=== PATIENT | female | born 1935 | race Caucasian/White ===

== ENCOUNTER 2016-10-11 12:41 | Inpatient (IN) | payer MEDICARE, OTHER ==
[2016-10-11] VITALS (13 sets, daily range): BP systolic 106–139; BP diastolic 61–81; PULSE 57–77; RESP 16–23; O2SAT 85
[~2016-10-11] VITALS: Ht 147.3 cm; Wt 47.4 kg
[2016-10-11] MEDS ORDERED: Alum-Mag Hydrox-Simeth 30 mL Suspension PO PRN (15:20)
[2016-10-11] MEDS ORDERED: Polyethylene Glycol (PEG) 17 Gm Powder PO PRN (15:20)
[2016-10-11] MEDS ORDERED: Atropine 1 mg/10 mL (Code) Syringe IVPUSH PRN ×2 (15:20→20:10)
[2016-10-11] MEDS ORDERED: Ondansetron 2 mg/mL 2 mL Inj IVPUSH PRN ×2 (15:20→20:10)
[2016-10-11] MEDS ORDERED: Senna-Docusate 8.6-50 mg Tablet PO PRN (15:20)
[2016-10-11 15:27] LABS: Mean Corpuscular Hemoglobin 31.1 pg (27.0-35.0); Mean Corpuscular Volume 93.9 fL (81-100)
[2016-10-11] MEDS ORDERED: Alum-Mag Hydrox-Simeth 30 mL Suspension PO ONE (15:35)
[2016-10-11] MEDS ORDERED: Heparin 5,000 Unit/mL Inj IVPUSH PRN (15:35)
[2016-10-11 15:55] LABS: TROPONIN T 2.28 ug/L (0.0-0.011)
[2016-10-11] MEDS ORDERED: ESTROGEN PO (15:56)
[2016-10-11] MEDS ORDERED: Dextrose 5% 250 ML IV ONE (15:58)
[2016-10-11] MEDS ORDERED: Nitroglycerin 50,000 mcg/250 mL D5W Premix IV ONE ×2 (15:58→19:55)
[2016-10-11] MEDS ORDERED: Heparin 1,000 Units/500 mL NS Premix IV ONE (15:58)
[2016-10-11] MEDS ORDERED: Heparin 10,000 Unit/1,000 mL NS Premix IV ONE ×2 (15:58→16:16)
[2016-10-11] MEDS ORDERED: Heparin 1,000 Unit/mL 10 mL Inj ONE ×2 (15:58→16:16)
[2016-10-11] MEDS ORDERED: NitroPRUSSIDE 25,000 mCg/mL 2 mL Inj IV ONE (15:58)
[2016-10-11] MEDS ORDERED: ASCO-294 PO (15:59)
[2016-10-11] MEDS ORDERED: BIOT1CAP3 PO (15:59)
[2016-10-11] MEDS ORDERED: CYAN1TAB42 PO (15:59)
[2016-10-11] MEDS ORDERED: BETA CAROTENE PO (15:59)
[2016-10-11] MEDS ORDERED: VITA400C64 PO (15:59)
[2016-10-11] MEDS ORDERED: CALC-777 PO (15:59)
[2016-10-11 16:29] LABS: Magnesium 1.8 mg/dL (1.6-2.6)
[2016-10-11] MEDS: Sodium Chloride LOK Flush 10 mL Syringe IVFLUSH SCH (16:30)
[2016-10-11] MEDS ORDERED: Ondansetron 2 mg/mL 2 mL Inj ONE (16:51)
[2016-10-11] MEDS ORDERED: fentaNYL-PF 50 mCg/mL 2 mL Inj ONE (17:01)
--- NOTE | 2016-10-11 17:49 | PCM.HPMED ---
Subjective Date of Service Oct 11, 2016 Primary Provider: Admitting Physician: Zora Munguia DO Primary Care Physician: Erickson Attending Physician: Zora Munguia DO Chief Complaint: Chest pain History of Present Illness: 81-year-old female with long-standing smoking history, as well as peptic ulcer disease who was transferred to our facility [place] after experiencing chest pain that radiated to her back that began at 8 PM last night. Patient states that she had a recent episode of this on September 20 that lasted 3-4 hours, but could still be felt for many days after. She states that she thought this chest pain was due to her agitation due to the fireworks agitating her dog. Patient does not remember any preceding events prior to the pain beginning last night, but states that she thought this was indigestion. Only other review of systems is positive for bloating and epigastric pain. She took many glasses of baking soda mixed with water, Tums and Maalox to help with the pain as it did on September 20, but today she was still feeling the chest tightness and pain. She denies significant shortness of breath, lightheadedness, dizziness, diaphoresis , radiation to the jaw or left arm, change in bowel or bladder habits. At [place] the patient was loaded with 300 mg of Plavix. Patient absolutely refuses to take aspirin, even a baby aspirin, due to her history of peptic ulcer disease. Discussion was had about the benefits of aspirin and Plavix combination but again, she adamantly refused the recommendation. On admit to our hospital the patient underwent EKG which showed elevations in V1 through V6, lead 1 and aVL. STEMI was called and Dr. De La Cruz (cardiology) as patient will need to go immediately to the manufacturing lab technician. Dr. De La Cruz immediately showed up and interviewed the patient in order to take her to the Nurse Discharge however the patient was very reluctant and much time was spent explaining the gravity and necessity of the Nurse Discharge. The patient's daughter was also called and the situation was explained to her as well. After extensive discussion between the patient, her daughter, myself and Dr. De La Cruz the patient decided to agree to the cath procedure however was reluctant to take medications afterwards. After assuring her that we will also treat her peptic ulcer disease with medication in addition to the heart medications that she would have to be taking she finally agreed and was willing to go to the Nurse Discharge. The patient's daughter also agreed with this plan. Review of Systems: Complete review of systems performed; pertinent positives and negatives per history of present illness, all other systems reviewed and are negative Allergies Coded Allergies: Penicillins (Unverified Allergy, Severe, Generalized Welts, 10/11/16) ciprofloxacin (Unverified Allergy, Severe, Face swelled up, 10/11/16) Uncoded Allergies: "all antibiotics except a z pack" (Allergy, Unknown, 10/11/16) patient states "i refuse all antibitics except z pack" Home Medications Vitamin C Biotin Calcium/D3 supplement B12 supplement Vitamin E PMH GERD with PUD No other reported medical problems Surgical History Hysterectomy Family History Mother of pneumonia/abdominal abscess Father committed suicide Social History Hx Alcohol Use: Yes Hx Substance Use: Yes Hx Tobacco Use: Yes (30-45 pack years) Exam Vital Signs Vital Sign - Last Date Time Temp Pulse Resp B/P Pulse Ox O2 Delivery O2 Flow Rate FiO2 10/11/16 14:50 Supplement Oxygen 10/11/16 14:43 61 Exam General: Age-appropriate female in moderate distress HEENT: PERRLA, EOMI, nonicteric, membranes moist Lymph: No lymphadenopathy Cardio: Regular rate and rhythm Respiratory: CTA bilaterally no wheezes or crackles noted Abdomen: Soft, positive bowel sounds, mildly tender epigastrium Extremities: No edema, sensation intact Psych: Appropriate mood and affect Neuro: CN II through XII grossly intact, sensation intact throughout Skin: No rash Lab and Diagnostics Result Diagram: 10/11/16 1500 10/11/16 1500 12-lead ECG Twelve-lead showed ST elevations in V1 through the D6, lead 1, and aVL. Reciprocal leads into 3 and aVF showed T-wave depression. Rate of 58 Assessment & Plan 81-year-old female with a history of prolonged nicotine abuse and peptic ulcer disease presented with chest pain with radiation to the back, with EKG changes significant for STEMI STEMI; present on admission; ongoing -EKG showed elevations in lead 1, aVL, V1 through V6 -Dr. De La Cruz interviewed the patient and took her for cath (extensive discussion was held with both Dr. De La Cruz and myself prior to taking the patient) -Patient was given metoprolol due to continued chest pain, morphine, nitroglycerin -Heparin was not started as there were some possible concerns for aortic dissection -Patient refused aspirin -Loaded with Plavix 300 mg at [facility] Hypokalemia; present on admission; Active -K 3.3 - Will repeat in the morning and replete if necessary - Follow up CMP in the AM Leukocytosis; present on admission; Active -WBC 10.2 most likely stress induced - Will repeat in the morning and if it is still elevated will obtain a procalcitonin and lactate - Follow up cbc in the AM Chronic GERD with PUD; present on admission; ongoing -Start omeprazole 40 mg daily Nicotine dependence; present on admission; ongoing -Nicotine patch 14 -Capsule patient quit smoking Disposition: Patient is being admitted to inpatient status with expected length of stay greater than two midnights due to to severity of presentation, duration of treatment, and risks of adverse events disposition Full code Pain Evaluation: Adequate Pain Control GI Prophylaxis: H2 marcella Resuscitation Status: CPR: Attempt Resuscitation Time spent 120 minutes was spent stabilizing the patient, consulting with cardiology (Dr. De La Cruz), and counseling the patient on her options and disease process. The patient was a very difficult to deal with as many preconceived notion had to be broken by educating the patient in order to be able to treat her emergently. The patient was emergently taken for cath and then return to the floor to the CCU. Attending Statement The patient was seen and examined together with Dr. Wiggins on 10/11/2016 and I have added additional information to the note above. Tae Wiggins DO Oct 11, 2016 17:49 Zora Munguia DO Oct 11, 2016 20:56
--- NOTE | 2016-10-11 18:30 | NUR ---
Arrived, Office Services Specialist [id number] - Received report from Lakshmi CARLOS at [facility]. Phone number . She said that the patient had just left via EMS. 1400 - She arrived via EMS to [facility] 2001 and was A&Ox3, able to walk with stand by assistance from the gurney to the bed, and was non-stop talking and joking. She complained of 8/10 chest pain. Her heparin drip was discontinued by EMS. Received report from the wheel inspector. 1430 - She was finally put into the [facility] system after two calls to Admissions. 1437 - Paged Dr. Munguia to get some medications for her chest pain and get some orders put in as she had none in her eMAR. Dr. Munguia did not call back and so Dr. Grullon (the Senior Resident) was contacted. He came to see the patient, put orders in, and said to hold off from restarting her Heparin until it could be determined if Cardiology or the [facility] team were to be caring for her. 1535 - Dr. Wiggins came to see her and was notified of her PTT lab of 28.3. 1543 - She received a STAT EKG which showed a STEMI. Dr. Wiggins, Dr. Munguia, and Jenn Tamayo, RN (Charge Nurse) were notified immediately. 1550 - Her Troponin came back at 2.28. Dr. De La Cruz, Dr. Wiggins, and Dr. Munguia were in her room at the time and notified. During this time Dr. De La Cruz was assessing her and making recommendations to take her to the rn cardiac cath. She was very hesitant about this and kept going off on bunny trails, talking non-stop, and needing continual redirection from staff back to the current situation. She did not seem to be hesitant about the actual stent/rn cardiac cath experience, but more about having to take aspirin everyday which she was very opposed to as she has a stomach ulcer. She was given Morphine at 1552 which seemed to help her relax some, but did not eliminate her chest pain. 1630 - Her CKMB back back as 206.7. Dr. Munguia was made aware. Finally, after much discussion and her talking to her daughter, Kelsey, she signed the consent to be taken to the rn cardiac cath and potentially have a stent placement. 1648 - She was taken to the rn cardiac cath. Attempted twice to place a second IV, but was unsuccessful. The rn cardiac cath team tested her 20 gauge IV and said they would take her as is. Did not give her 325 mg of Aspirin per Dr. De La Cruz's orders due to rushing her to the rn cardiac cath. The team was notified of this. Most of her admission interventions were completed before she went, except for a few things like her H/P. 1731 - Her neighbor called wanting an update on her condition. Informed them that she was not available to be able to give consent for any medical information to be given out. Took down their name and number to be given to her later. He said he and his were taking care of her dogs. 1800 - Was notified that she would be transferred to CCU 2012. Gave report to Miriam Arndt RN. Her belongings were taken to her new room.
--- NOTE | 2016-10-11 19:32 | DRSVH ---
PROCEDURE: X-RAY CHEST ONE VIEW, PORTABLE ([id number]) INDICATIONS: cp TECHNIQUE: One view of the chest was acquired. COMPARISON: Outside Film, CT, CT leads are seen over the chest. Lungs and pleura: Minimal thickening of the minor fissure suspect. Hilar structures and pulmonary vas culature are indistinct. Mediastinum: Mediastinal contours appear normal. Heart size is normal. Bones and chest wall: No suspicious bony lesions. Overlying soft tissues appear unremarkable. IMPRESSION: Prominent increased interstitial markings. Congestive failure may be occurring. There are no old films to compare to evaluate for chronic markings as well. Dictated by: Jefry Daniels M.D. on 10/11/2016 at 19:27 Approved by: Jefry Daniels M.D. on 10/11/2016 at 19:30
--- NOTE | 2016-10-11 19:37 | NUR ---
Transfer to CCU: Patient arrived to CCU room 2012 at about 1850 via patient bed from laboratory helper. Patient is A&O X3. Daughter at bedside. Tele Sinus 60's. BP stable. SpO2: high 80's on 15L oxymask. notified. EKG completed. Chest Xray taken. R groin has a small amount of sanguineous drainage, no bruising/ hematoma noted, site is soft, mildly tender to touch. Pedal pulses palpable and equal. Report given to JAYJAY orozco RN.
[2016-10-11] MEDS ORDERED: Furosemide 10 mg/mL 2 mL Inj ONE (19:59)
[2016-10-11] MEDS ORDERED: 0.9% Sodium Chloride 250 ML BOLUS IV PRN (20:10)
[2016-10-11] MEDS: Nitroglycerin 50 mg/250 mL D5W Premix IV SCH (20:10)
[2016-10-11] MEDS ORDERED: 0.9% Sodium Chloride 400 ML (4 HRS) IV ONE (20:10)
[2016-10-11] MEDS ORDERED: Furosemide 10 mg/mL 2 mL Inj IV ONE (20:10)
--- NOTE | 2016-10-11 20:21 | CS94 ---
[address] [address] DIAGNOSTIC CARDIAC CATHETERIZATION PATIENT: MOLLY HOWELL : 1935 MR#: [id number] ADMIT: 10/11/2016 JOB ID: [id number] SERVICE DATE: 10/11/2016 PROCEDURE NOTE--CARDIAC CATHETERIZATION LABORATORY: DATE OF PROCEDURE: Tuesday, October 11, 2016. RELINER: Bari De La Cruz MD. PROCEDURES: 1. Coronary angiogram--emergent. 2. Percutaneous coronary intervention (PCI): a. Percutaneous transluminal coronary angioplasty--balloon angioplasty of proximal and mid left anterior descending. CLINICAL DETAILS: This 81-year-old woman, who has no prior history of heart disease, presented to [facility] this morning after more than 12 hours of constant severe retrosternal chest discomfort which she attributed to GI symptoms and "gas." On transfer to this hospital, she was still having severe--8/10 intensity--chest pain; and EKG showed anterior ST elevation with reciprocal inferior ST depression. Emergent cardiac catheterization and anticipated PCI for likely LAD occlusion was recommended and planned. Also note a complicated clinical scenario in that she had severe prolonged chest discomfort three weeks ago on September 20; an ECG shows deep fully developed Q-waves across the precordium V1 to V6 consistent with a prior extensive anterior [place]. Currently CK total is 1942 with CK-MB 206 and troponin 2.28 (troponin 26 at the outside hospital). PROCEDURAL DETAILS: I met her in the room on the cam to evaluate her. I discussed the findings, impressions and management considerations with her including the recommendation to proceed emergently with coronary angiogram for definitive diagnosis and to guide treatment options including anticipated PCI or medical therapy or possibly bypass surgery; as well as to relieve her ongoing chest discomfort. Initially, the patient did not want to proceed with catheterization in view of her long-term reluctance to see doctors, take medicines; especially due to her reluctance to take aspirin in view of a history of prior ulcers. No family was present initially. I discussed the procedure including possible risks and complications. We discussed bleeding, infection, and blood clots; as well as injury to nerve, artery, vein or kidney; and also arrhythmia, drug reaction; or others. We discussed treatment as needed that could include surgery, pacemaker, transfusion. We discussed more serious complications that are possible including stroke, heart attack, cardiac arrest, , and emergency surgery including transfer for coronary bypass surgery. We discussed her very high risk status in view of her clinical scenario and also in view of her very small size (47 kg). Ultimately, she spoke with her daughter and elected to proceed with catheterization, and after our discussion and questions, she signed informed consent to proceed. She was taken to the catheterization laboratory NPO where she was prepped sterilely and draped. She received ASA 324 mg chewed. She had previously received 300 mg Plavix at the outside hospital in lieu of aspirin. CORONARY ANGIOGRAM: Arterial access was obtained without difficulty in the right common femoral artery using fluoroscopic localization over the femoral head, Local Xylocaine anesthesia and modified Seldinger technique to insert a 10 cm, 6-Bhutanese side-arm sheath. Catheters were advanced and exchanged over a long, J-tipped 0.035 inch guidewire. First, the right coronary artery was imaged using a 6-Bhutanese JR-4 diagnostic catheter. Then, the left coronary artery was imaged using a 6-Bhutanese JL-3.5 guide catheter. LV not entered. PCI (PTCA ONLY) OF PROXIMAL AND MID LAD OCCLUSIONS: The diagnostic images were reviewed. Decision was made to proceed with PCI of the occluded proximal LAD. For intervention, she received additional Plavix 150 mg p.o. (450 mg Plavix loading dose total). Procedural anticoagulation was obtained with heparin 5000 units IV. The 6-Bhutanese JL-3.[address] guide catheter already in place was used for the intervention. A BMW wire--0.014 inches x 190 cm--was inserted and did cross the site of proximal occlusion into a segment of 360 degree tortuosity in the mid LAD. A Trek balloon--2.5 x 15 mm--was inserted across the site of proximal occlusion and inflated several times to maximum 12 atmospheres. The artery was opened at this point, with a satisfactory PTCA result. The LAD could be seen occluded further downstream in the mid to distal vessel. This area was probed with a BMW wire. A 2nd wire--Metrologist 50--was also used. Ultimately, the distal LAD could be seen faintly beyond the area of distal occlusion. The vessel is small, thready and severely diffusely diseased. It is not a candidate for further efforts at revascularization. The procedure was terminated at this point. Procedure without difficulty. Patient tolerated procedure well. No complications. A side-arm sheath angiogram shows adequate access in the femoral artery for a closure device; and arterial hemostasis is obtained without difficulty using a StarClose clip. The patient was stable and her chest pain had decreased substantially to only 3/10 severity. She was transferred stable and improved from the catheterization laboratory to the CCU unit for ongoing care including by the primary hospitalist service. I discussed the procedures findings and management considerations with the patient; with her daughter now here; and with the hospitalist team, Dr. Munguia. FINDINGS: 1. LMCA: The left main coronary artery is short and intact without any angiographically significant lesion. 2. LAD: The left anterior descending coronary artery is occluded proximally at the first septal cartography supervisor. Later, after PTCA, the distal LAD is seen to the apex. It is very small, thready and severely diffusely diseased. 3. LCX: Left circumflex coronary artery is a large vessel that is intact and without angiographically significant coronary lesions. Its distribution consists of one moderate to large size branching OM and a large distal LPL branch. 4. RCA: Dominant. Intact. The right coronary artery has mild atherosclerotic plaquing; its distribution includes a small PDA and RPLV. There are very faint collaterals seen in the direction of the LAD. CONCLUSIONS: 1. PCI with PTCA of proximal and mid LAD occlusions; and with extensively severely diseased LAD, not amenable to definitive revascularization. 2. ACS: Current anterior myocardial infarction; and clinical scenario consistent with subacute extensive anterior myocardial infarction three weeks ago. 3. Coronary artery disease (CAD)--single-vessel CAD with proximal LAD occlusion and mid LAD occlusion; and severely extensively diseased LAD. RECOMMENDATIONS: 1. ECASA--indefinitely. Consider low-dose and GI protective regimen. 2. Plavix--plan one year dual antiplatelet therapy after ACS including with ongoing Cardiology followup. 3. Echocardiogram. 4. Supportive critical care--she remains at high risk for sequelae of her extensive anterior WY including regarding heart failure, ventricular arrhythmia and cardiac rupture. 5. OMT--guideline directed optimal medical therapy for her anticipated LV dysfunction; and for underlying CAD risk factors including we discussed smoking cessation.
[2016-10-11] MEDS ORDERED: Potassium Chloride Oral 20 mEq SR Tab(K 3 - 3.7 & Creat < 2) PO ONE (20:30)
[2016-10-11] MEDS: Heparin 25K Unit/500mL 0.45 NS 25,000 UNIT in IV Premix 1 EACH IV SCH (20:46)
--- NOTE | 2016-10-11 21:22 | CONS ---
[address] [address] CONSULTATION REPORT PATIENT: MOLLY HOWELL : 1934 MR#: [id number] ADMIT: 10/11/2016 JOB ID: [id number] CARDIOLOGY CONSULTATION NOTE--EMERGENT INITIAL EVALUATION(CRITICAL CARE): DATE OF EVALUATION: Tuesday, October 11, 2016. CONSULTING PHYSICIAN: Cardiology--Bari De La Cruz MD. PROBLEMS: 1. Acute coronary syndrome (ACS): a. Chest Pain--Ongoing severe retrosternal pressure for over 24 hours. b. STEMI--ECG shows anterior JUDY; and reciprocal inferior STD; and extensive Q-waves V1 to V6. CORONARY ARTERY DISEASE RISK FACTORS: Cigarettes--Current cigarette smoker. No history of treated hypertension. No history of treated hyperlipidemia. No history of diabetes. Family History of Premature coronary disease--Noncontributory. CHIEF COMPLAINT: Chest pain. STEMI--Called for wharf labourer activation. HISTORY OF PRESENT ILLNESS: PRESENTATION: I saw this 82 yo lady emergently after called for "wharf labourer activation" when she arrived to this hospital by EMS transport from [facility] where she had initially presented. She was noted to have ongoing pressure and "gas" like retrosternal chest discomfort--severity 8 on a scale of 10. ECG showed anterior MD with ST elevation. She was otherwise clinically stable on presentation. She had declined aspirin because of her concerns over remote history of ulcer (no history of bleeding ulcer or transfusion). She had been given a loading dose of Plavix 300 mg p.o. and Heparin IV. The patient tells me she has had no prior history of heart disease. However, she notes that she does not have a doctor and has not seen doctors and has avoided all medicines except [id number] vitamin supplements. She is, however, generally quite active including driving. Until the onset of the current illness, she had no effort limitation or effort-related symptoms including she has had no symptoms of chest discomfort or angina; or symptoms of heart failure including exertional dyspnea, nocturnal dyspnea or edema. She has not had history of arrhythmia or symptoms of arrhythmia, including tachy, palpitation, presyncope or syncope. Her illness began with the sudden onset of severe retrosternal chest discomfort radiating to the back that began on September 20 and lasted several hours. She did not seek medical attention because she thought it was "gas." She took large amounts of Tums and baking soda. She was apparently without severe symptoms after that despite resuming her activities; and until last night when she had the onset of persistent severe similar chest and back discomfort. She has not been short of breath. Regarding other possible underlying vascular disease, she reports no history of CVA or current symptoms of TIA. No claudication. Regarding possible dual antiplatelet therapy, she reports no bleeding symptoms; and no anticipated upcoming surgery; but she is not sure she would want to take mandatory medicines. ALLERGIES: She reports allergy to "ALL ANTIBIOTICS." I elicit no history of allergy to medical contrast or to seafood, iodine, shell fish or fish. MEDICATIONS: She takes no prescription medicines regularly; except she uses multiple over-the -counter vitamins, and supplements. PAST MEDICAL HISTORY: She reports to be generally healthy except history of a remote ulcer which appears not to have been symptomatically active recently. REVIEW OF SYSTEMS: I questioned her in the emergent setting regarding a 13 point review of systems which is unremarkable and noncontributory and negative except as noted includin. No history of thyroid disorder. 2. No history of lung disorder including chronic dyspnea, asthma or wheezing. She does not report symptoms of asthmatic bronchitis or of chronic bronchitis. She reports not having a chest cold for many years. 3. No history of GI disorder including hepatitis, jaundice, or indigestion other than the history of prior ulcer. PERSONAL AND SOCIAL HISTORY: Cigarettes--Many years of smoking one pack cigarettes a day. Alcohol--She reports not using significant amounts of alcohol. Family--She lives independently, drives and has a daughter who lives locally and who arrived later. FAMILY HISTORY: Noncontributory regarding premature CAD. PHYSICAL EXAMINATION: GENERAL APPEARANCE: Frail, elderly woman who is alert, talkative, and comfortable lying flat. VITAL SIGNS: Blood pressure 139/70 with heart rate 60, regular in sinus rhythm on telemetry with occasional PVC. Respiratory rate 18 and nonlabored with Sp02 95 on nasal cannula. Afebrile. Weight: Note weight 47 kg! NEUROLOGIC AND MENTAL STATUS: No overt focal neurologic defect noted. She is alert, oriented, appropriate and conversant. HEENT: PERRL. Conjunctivae pink. Sclerae not icteric. Mouth and mucous membranes intact. NECK: Carotid upstroke intact bilaterally without bruit. Jugular venous pressure unremarkable examined supine. No palpable thyromegaly. No palpable cervical lymphadenopathy. LUNGS: Lungs clear to auscultation bilaterally. CARDIAC: No chest wall tenderness. Cardiac examination notable for regular rhythm, S4 gallop; and no loud murmur. ABDOMEN: Flat and otherwise unremarkable without tenderness, mass, hepatosplenomegaly, or bruit of abdominal aortic aneurysm. EXTREMITIES: Intact with no edema. Pedal pulses 1 to 2+ bilaterally at the dorsalis pedis. DIAGNOSTIC STUDIES: ELECTROCARDIOGRAM: I reviewed the ECG on presentation at [facility]; and again here. They show sinus rhythm at 70 bpm with extensive anterior MD with Q-waves V1 to V6. There is anterior ST elevation and reciprocal inferior ST depression as well as lateral ST elevation, L1 and aVL. CHEST X-RAY: Chest x-ray had not been done. When done, chest x-ray shows cardiomegaly and tonie pulmonary edema with butterfly pattern (severe). LABORATORY: CBC includes WBC 10,200 with hemoglobin 12.3, hematocrit 37.2, normal indices, and platelet count 170,000. Chemistries include potassium low at 3.3. CO2 25. BUN 15 with a creatinine 0.53 (estimated GFR 159); and glucose 122. Magnesium 1.8. Cardiac markers include CK total 1942 with CK-MB 207; and troponin 2.28. TSH 0.613. ASSESSMENT: I discussed the findings, impressions and management considerations with her; later with her Daughter; and with the Hospitalist Team including Dr. Munguia and with night coverage MD, Dr. Pérez includin. CAD with recurrent anterior myocardial infarction and ongoing chest pain : The clinical scenario that became evident indicates that she likely had an extensive anterior MD on September 20 that was unrecognized, and untreated at that time. She has been relatively stable since then until yesterday. Now, she has ongoing chest discomfort; but otherwise reasonably stable clinically. Anticipate Ischemic Cardiomyopathy: Note CHF seen on CXR, not surprisingly. I discussed the recommendation to proceed with emergent coronary angiogram for definitive diagnosis, and to guide treatment options including medical therapy, anticipated PCI; or consideration of coronary bypass, if needed. I discussed the procedure including possible risks and complications with her. We discussed bleeding, infection, and blood clot as well as injury to nerve, artery, vein or kidney; and also arrhythmia, drug reaction; or Others. We discussed treatment as needed including surgery, pacemaker, transfusion. We discussed other more serious complications that are possible including stroke heart attack, cardiac arrest, and emergent surgery, including transfer for coronary bypass surgery. After discussion and questions, she signed informed consent to proceed. Note, initially she did not want to proceed with catheterization or even with taking aspirin because of her concern for ulcers. Ultimately, she talked with her Daughter; and they both were comfortable to proceed. They understand we consider her to be at high risk due to the nature of her clinical scenario, including because of active ischemia, and prior extensive myocardial infarction; and also rleated to her very low weight. RECOMMENDATIONS: 1. Cardiac Catheterization--emergent now. 2. Critical care support. 3. OMT--Guideline-directed optimal medical therapy for anticipated LV dysfunction, heart failure and underlying CAD risk factors; including ASA; Plavix; high-intensity statin; consider beta mareclla when not decompensated, hold ROLANDO inhibitor initially after contrast. COMMENT: As we discussed, she is critically ill, including developing pulmonary edema and oxygen saturation dwindling into the 80s. She will benefit from close ongoing attention including for her pulmonary--edema requiring diuresis; and for her hypokalemia. Diuresis now--Plan Lasix IV 20 mg now; and to assure net fluid output of 1 liter over the next several hours. NTG IV. Heparin IV. Echo. Later may need to consider ICD/Life Vest pending assessment of EF. Please reconsult Cardiology as needed including at any time if she deteriorates. MTDD
[2016-10-11 21:39] LABS: TROPONIN T 15.58 ug/L (0.0-0.011)
[2016-10-11] MEDS ORDERED: Furosemide 10 mg/mL 4 mL Inj IVPUSH ONE (23:25)
[2016-10-12] VITALS (7 sets, daily range): BP systolic 88–107; BP diastolic 45–57; PULSE 58–76; RESP 15–22; O2SAT 92–97
[2016-10-12] MEDS: Sodium Chloride LOK Flush 10 mL Syringe IVFLUSH SCH ×4 (00:30→21:34)
[2016-10-12 00:58] LABS: APPEARANCE,URINE CLEAR (CLEAR,HAZY); COLOR,URINE YELLOW (YELLOW); PH,URINE 5.5 (5.0-8.0)
[2016-10-12 00:59] LABS: OCCULT BLOOD,URINE SMALL (NEGATIVE); UROBILINOGEN,URINE NORMAL (NORMAL)
[2016-10-12 04:03] LABS: BASOPHILS % (AUTO) 0.1 % (0-3); EOSINOPHILS % (AUTO) 0 % (0-5); MONOCYTES % (AUTO) 10.3 % (4-12); Mean Corpuscular Hemoglobin 31.3 pg (27.0-35.0); Mean Corpuscular Volume 93.5 fL (81-100); Platelet Count 182 bil/L (150-400)
--- NOTE | 2016-10-12 04:49 | NUR ---
Resp / Cardiac SpO2 remains in the 80s and patient is placed on a NRB. SpO2 low 90s. MD updated and viewed CXR, orders received for Lasix, monten[place]ro, Nitro gtt, and Heparin gtt. Night resident updated on patient condition and urine output and another dose of Lasix is ordered. BP trending down with MAP < 60 so Nitro is placed on standby for approximately 90 minutes until it recovers. Patient currently on 13L OM, SpO2 94%. Patient has 1400ml out her mont[place] at this point in the shift. Tele SB / SR, rare PVCs. Patient states she has a little chest discomfort when she takes deep breaths or coughs. RG dressing changed due to oozing. MD aware. No hematoma present. Pulses strong bilaterally.
[2016-10-12 05:14] LABS: TROPONIN T 9.94 ug/L (0.0-0.011)
--- NOTE | 2016-10-12 11:52 | DRSVH ---
[facility] [address] [place] [address] Echocardiogram Report Name: MOLLY HOWELL MStudy Date: Height: 58 in Hospital Exam Location: [facility] Weight: 104 lb Gender: Male BSA: 1.4 m2 : 1935 Age: 81 yrs BP: 104/57 mm Hg Reason For Study: Acute Coronary Syndrome Ordering Physician: HOSPITALIST [facility] Performed By: Rashida Patel Referring Physician: [facility] Interpretation Summary Normal left ventricle size with ejection fraction 30%. The apical 2/3 of anterior wall, apical 1/2 of septum, apical 1/3 of inferior wall and apical 1/3 of lateral wall are akinetic. The apex is dyskinetic. These wall motion abnormality is consistent with proximal LAD lesion. Grade I diastolic dysfunction. Mild mitral regurgitation. Mild aortic regurgitation. Mild tricuspid regurgitation. The right ventricular systolic pressure is estimated at 39 mmHg assuming a right atrial pressure of 8 mm Hg. Procedure: A two-dimensional transthoracic echocardiogram with color flow and Doppler was performed. The study quality was technically adequate. There is no prior echocardiogram noted for this patient. The patient was in normal sinus rhythm during the exam. The patient had occasional PVCs during the exam. Left Ventricle: The left ventricle is normal in size. There is normal left ventricular wall thickness. Left ventricular ejection fraction is estimated to be 30%. There is apical anterior wall akinesis. There is mid anterior wall akinesis. There is apical septal wall akinesis. There is apical inferior wall akinesis. There is apical lateral wall akinesis. There is apical dyskinesis. Assessment of diastolic parameters indicates a relaxation abnormality of the left ventricle, consistent with normal filling pressures. Right Ventricle: The right ventricle is normal in size and function. Atria: Both atria are normal in size. The interatrial septum is intact with no evidence for an atrial septal defect. Mitral Valve: The mitral valve leaflets appear thickened, but open well. There is mild mitral regurgitation. Aortic Valve: The aortic valve is trileaflet. The aortic valve opens well. There is mild aortic regurgitation. Tricuspid Valve: The tricuspid valve is normal in structure and function. There is mild tricuspid regurgitation. The right ventricular systolic pressure is estimated at 39 mmHg assuming a right atrial pressure of 8 mm Hg. Pulmonic Valve: The pulmonic valve is not well seen, but is grossly normal. There is trace pulmonic regurgitation. Great Vessels: The aortic root is normal size. The ascending aorta is normal in size. The aortic arch could not be visualized. The pulmonary artery is normal size. The IVC is of normal diameter and collapses less than 50% with a sniff. This suggests a right atrial pressure of 8 mm Hg. Pericardium/ Pleura There is no pericardial effusion. There is no pleural effusion. MMode/2D Measurements & Calculations LVIDd: 4.4 cm RA long axis LVOT diam LVIDs: 3.2 cm LA A2 area: 14.8 cm FS: 26.0 % LA A4 area: 18.0 cm RA area AoV Opening EPSS: 0.28 cm LA length (vol): 5.0 cm IVSd: 0.85 cm LA vol: 44.8 ml : 10.2 cm Ao root diam LVPWd: 0.69 cm LA vol index RA vol : 20.4 ml asc Aorta RA Diam: 3.1 cm IVC diam: 1.5 cm : 14.8 mm2 LV han. diameter/BSA LV sys. diameter/BSA RVD1 (basal) RVD2 (mid) (cm/m^2): 3.2 (cm/m^2): 2.3 : 2.0 cm TAPSE: 2.0 cm Doppler Measurements & Calculations Ao V2 max: 107.7 cm/secMV E max stew MV E/A: 0.82 TR max stew Ao max P.6 mmHg : 58.3 cm/sec Med Peak E' Stew : 277.6 cm/sec Ao mean P.8 mmHg MV A max stew TR max PG LVOT Max Stew : 70.7 cm/sec E/E' med: 12.6 : 30.8 mmHg : 84.6 cm/sec Lat Peak E' Stew PA V2 max ELIANE(I,D): 2.5 cm : 55.4 cm/sec sev ratio: 0.82 E/E' lat: 11.1 PA mean PG AI P1/2t: 604.2 msec E/e' average : 0.87 mmHg AI dec slope PA Accel Time : 0.14 sec : 193.7 cm/s2c MV dec time: 0.15 sec Ao V2 mean LV V1 max PG PA V2 mean : 79.4 cm/sec : 45.1 cm/sec Ao V2 VTI LV V1 VTI: 19.4 cm ELIANE(V,D): 2.4 cm2 ELIANE indexed to BSA (cm^2/m^2): 1.8 Electronically signed by: Jenn Torres on Reading Physician:10/12/2016 11:51 AM
[2016-10-12] MEDS: Pantoprazole 40 mg ER24 Tablet PO SCH (13:26)
[2016-10-12] MEDS ORDERED: Furosemide 10 mg/mL 2 mL Inj IVPUSH ONE (13:50)
--- NOTE | 2016-10-12 15:30 | NUR ---
SPO2/BP Pt transferred to PCC at 15:30. Report given to Jarrod Stone RN. Cardiac: Pt denies CP, nitro being titrated off, started at 25mcg/min. Tele: SR 60s-70s. BP up as nitro titrated down. Resp: Pt denies SOB, and is sick of wearing oxymask 13L. O2 changed to NC, SPO2 92-95 on 6L NC. reports sore throat and worsening cough. Crackles in bases, 20ml Lasix given. GI/: Pt denies n/v/d, montenegro draining to gravity. Neuro: A&Ox3, DANA
--- NOTE | 2016-10-12 16:45 | PROG NOTE ---
[address] [address] PROGRESS NOTE PATIENT: MOLLY HOWELL : 1935 MR#: [id number] ADMIT: 10/11/2016 JOB ID: [id number] CARDIOLOGY CONSULTATION PROGRESS NOTE -- FOLLOWUP INPATIENT VISIT: DATE: Monday, October 12, 2016 CONSULTING PHYSICIAN: Cardiology -- Bari De La Cruz MD PROBLEMS: 1. Anterior IN: a. a. Extensive anterior IN, September 20, 2016. b. Presenting 24 hours ago with recurrent persistent pain. c. Coronary angiogram and PTCA (balloon only angioplasty) of occluded extensively diseased proximal mid and distal LAD. 2. CAD: a. a. Single-vessel CAD -- LAD. b. Ischemic cardiomyopathy -- anterior apical and distal inferior akinesis with ejection fraction 30% to 35%. INTERIM HISTORY AND PROGRESS: (Hospital day - two): I was glad to see this 87-year-old patient and her daughter in the CCU this morning on Cardiology rounds. In summary of her course yesterday, she presented in transfer from [facility] and was found to have anterior IN on ECG as well as extensive Q-waves from previously and ongoing chest pain for 24 hours, and the ST elevation appeared likely active because there was reciprocal ST depression. We took her emergently to the Pediatric Dietician and documented as anticipated occluded LAD. At intervention, the artery was opened but seemed to be severely diffusely diseased and thready to the apex; and was not a candidate for further definitive intervention or bypass. After the catheterization, her saturations dropped into the 80s. Chest x-ray showed overt pulmonary edema. Lasix 20 mg IV resulted in a net 1200 cc diuresis. She has been comfortable throughout without dyspnea; and her chest discomfort has waned and is not a problem currently. Clinically she is not in overt heart failure. This morning she is in good spirits and anxious to get up and around and find out how long she will need to be in the hospital. OBJECTIVE: Vital signs stable with systolic blood pressure 93/49 on IV NTG. There is no reported significant arrhythmia. SpO2 94% still on high-flow Oxymask. Examination is otherwise intact and stable regarding heart and lungs and at her cath site. ECG: The ECG continues to show sinus rhythm with extensive anterior Q-waves across the precordium. There is residual ST-elevation which may represent her dyskinetic apical segment and developing aneurysm. Interestingly the inferior STD is resolved and there is inferior JUDY which may reflect the distal inferior wall related to a wrap-around LAD. LABORATORY: Overall stable. Note, WBC 10,200 INCOMPLETE DICTATION: Dictation ends at this point. cc: Dr. Munguia, hospitalist
--- NOTE | 2016-10-12 18:18 | PCM.PNMED ---
Subjective Date of Service Oct 12, 2016 Subjective Patient reports that her chest pain has improved, though the pain has migrated up into her throat rather than down her arms as previously. She denies nausea, vomiting, diaphoresis, palpitations, or SOB. No significant overnight events. Comprehensive ROS negative except as outlined. Exam Vital Signs Vital Sign - Last Date Time Temp Pulse Resp B/P Pulse Ox O2 Delivery O2 Flow Rate FiO2 10/12/16 16:26 37.0 74 20 107/54 97 Nasal Cannula 4.50 Intake and Output 10/11/16 10/11/16 10/12/16 Cumulative From/Thru 15:00 23:00 07:00 10/11/16 17:18 - 10/12/16 06:55 Intake Total 0 ml 266 ml 266 ml Output Total 200 ml 1450 ml 1650 ml Balance -200 ml -1184 ml -1384 ml Intake Oral 0 ml 50 ml 50 ml IV Total 216 ml 216 ml Output Urine Total 200 ml 1450 ml 1650 ml Exam Gen: A/O x3 pleasant exceptionally talkative elderly woman in mild acute distress Neck: Supple, non tender, no thyromegaly, no JVD HEENT: PERRL, EOMI, no scleral icterus, no conjunctival pallor CV: RRR, mild 2/6 systolic ejection murmur, no rubs or gallops Resp: Lungs CTA BL, no wheezing rales or rhonchi Abd: Soft, non tender, no organomegaly, no rebound or guarding Extr: Thin, no cyanosis clubbing or edema Neuro: CN 2-12 grossly intact, no focal neurologic deficit Psych: Unclear to what degree the patient understands the gravity of her diagnosis. IVs and Medications IV Fluids 500 ml NS delivered with IV meds. Medications Reviewed: Medications were reviewed in detail Lab and Diagnostics Item Value Date Time Red Blood Count 3.83 mil/mm3 L 10/12/16 035 Mean Corpuscular Volume 93.5 fL 10/12/16 035 Mean Corpuscular Hemoglobin 31.3 pg 10/12/16349 Mean Corpuscular Hemoglobin Concent 33.5 % 10/12/16349 Red Cell Distribution Width 13.1 % 10/12/16349 Neutrophils (%) (Auto) 79.0 % H 10/12/16 035 Lymphocytes (%) (Auto) 10.3 % L 10/12/16349 Monocytes (%) (Auto) 10.3 % 10/12/16349 Eosinophils (%) (Auto) 0 % 10/12/16349 Basophils (%) (Auto) 0.1 % 10/12/16349 Estimat Glomerular Filtration Rate 126 mL/min 10/12/16349 Calcium Level 8.9 mg/dL 10/12/16349 Total Creatine Kinase 2822 U/L H 10/12/16349 Creatine Kinase MB 196.5 ng/mL *H 10/12/16349 Creatine Kinase MB % 7.0 % H 10/12/16349 Troponin T 9.94 ug/L *H 10/12/16349 Pro-B-Type Natriuretic Peptide 9757 pg/mL H 10/12/16349 Triglycerides Level 70 mg/dL 10/12/16349 Cholesterol Level 155 mg/dL 10/12/16349 LDL Cholesterol, Calculated 85.000 mg/dL 10/12/16349 VLDL Cholesterol 14.000 mg/dL 10/12/16349 HDL Cholesterol 56 mg/dL 10/12/16349 Cholesterol/HDL Ratio 2.77 10/12/16349 Procalcitonin 0.11 ng/mL H 10/12/16349 Result Diagram: 10/12/1634910/12/16349 12-lead ECG Twelve-lead showed ST elevations in V1 through the D6, lead 1, and aVL. Reciprocal leads into 3 and aVF showed T-wave depression. Rate of 58 Cardiac Echo Impressions Interpretation Summary Normal left ventricle size with ejection fraction 30%. The apical 2/3 of anterior wall, apical 1/2 of septum, apical 1/3 of inferior wall and apical 1/3 of lateral wall are akinetic. The apex is dyskinetic. These wall motion abnormality is consistent with proximal LAD lesion. Grade I diastolic dysfunction. Mild mitral regurgitation. Mild aortic regurgitation. Mild tricuspid regurgitation. The right ventricular systolic pressure is estimated at 39 mmHg assuming a right atrial pressure of 8 mm Hg. Electronically signed by: Jenn Torres on Reading Physician:10/12/2016 11:51 AM . Additional Diagnostics Coronary catheterization FINDINGS: 1. LMCA: The left main coronary artery is short and intact without any angiographically significant lesion. 2. LAD: The left anterior descending coronary artery is occluded proximally at the first septal nuclear security officer. Later, after PTCA, the distal LAD is seen to the apex. It is very small, thready and severely diffusely diseased. 3. LCX: Left circumflex coronary artery is a large vessel that is intact and without angiographically significant coronary lesions. Its distribution consists of one moderate to large size branching OM and a large distal LPL branch. 4. RCA: Dominant. Intact. The right coronary artery has mild atherosclerotic plaquing; its distribution includes a small PDA and RPLV. There are very faint collaterals seen in the direction of the LAD. Bari De La Cruz MD 10/11/16 1909 . Assessment & Plan 81-year-old female with a history of prolonged nicotine abuse and peptic ulcer disease presented with chest pain with radiation to the back, with EKG changes significant for STEMI. Patient underwent coronary catheterization on 10/11/16 which demonstrated severe disease to the LAD not amenable to stenting due to small caliber vessels. Follow up ECHO was obtained with results as above, indicative of severe cardiac dysfunction and widespread akinesis STEMI; present on admission; ongoing -EKG showed elevations in lead 1, aVL, V1 through V6 -Coronary catheterization with full results as above, extensive disease to the LAD not amenable to stenting -Start metoprolol PO, morphine IV, nitroglycerin IV -Metoprolol had to be withheld at times due to hypotension while on Nitro drip -Heparin drip continued -Enteric coated Aspirin and Plavix -Follow up ECHO with results as above, indicative of extensive akinesis and hypokinesis Hypokalemia; present on admission; Resolved -K 3.3 upon presentation -Now corrected, will replete as necessary -Continue to follow CMP Leukocytosis; present on admission; Active -WBC 10.2 most likely stress induced, -Procalcitonin essentially negative -Continue to track CBC Chronic GERD with PUD; present on admission; ongoing - Continue omeprazole 40 mg by mouth daily Nicotine dependence; present on admission; ongoing -Nicotine patch 14 -Counseled patient to quit smoking Disposition: It is questionable whether the patient fully comprehends the degree of her cardiac disease and what this will mean for her. She is highly likely to be non-compliant with her medication which further worsens her prognosis. Anticipate DC in 1-2 days once stability on new medication regimen can be demonstrated. Pain Evaluation: Adequate Pain Control GI Prophylaxis: H2 marcella Resuscitation Status: CPR: Attempt Resuscitation Attending Statement The patient was seen and examined together with Dr. Bucio on 10/12/16 and I have added additional information to the note above. Deandre Bucio DO Oct 12, 2016 18:17 Zora Munguia DO Oct 13, 2016 16:40
[2016-10-12] MEDS: Nitroglycerin 50 mg/250 mL D5W Premix IV SCH (19:35)
[2016-10-13] VITALS (8 sets, daily range): BP systolic 83–96; BP diastolic 38–56; PULSE 62–75; RESP 12–20; O2SAT 90–99
[2016-10-13 03:41] LABS: BASOPHILS % (AUTO) 0.2 % (0-3); EOSINOPHILS % (AUTO) 0.2 % (0-5); MONOCYTES % (AUTO) 13.7 % (4-12); Mean Corpuscular Hemoglobin 30.9 pg (27.0-35.0); Mean Corpuscular Volume 94.3 fL (81-100); NEUTROPHILS % (AUTO) 69.9 % (40-74); Platelet Count 134 bil/L (150-400)
[2016-10-13 03:55] LABS: INR 1.1 ratio
[2016-10-13 04:20] LABS: Magnesium 1.9 mg/dL (1.6-2.6); Phosphorus 1.5 mg/dL (2.5-4.9)
[2016-10-13] MEDS: Heparin 25K Unit/500mL 0.45 NS 25,000 UNIT in IV Premix 1 EACH IV SCH (06:50)
[2016-10-13] MEDS ORDERED: Potassium Chloride 20 mEq SR Tablet PO ONE (07:35)
[2016-10-13] MEDS: Sodium Chloride LOK Flush 10 mL Syringe IVFLUSH SCH ×2 (08:30→16:50)
[2016-10-13] MEDS: Pantoprazole 40 mg ER24 Tablet PO SCH (08:43)
--- NOTE | 2016-10-13 10:32 | NUR ---
Social Work: Initial Assessment/Multidisciplinary Rounds D: Per EMR review, pt is an 81 year old female admitted for R/o ACS. Pt is Medicare with [employer] insurance; pt has no LTC or VA benefits. PCP is Andres Mart. NOK is Kelsey Rahman, dtr, . Advanced directives requested for chart. Readmit score is high, 3/8. Pt discussed in am rounds. Pt is improving and may be ready for discharge later this afternoon. Capacity for self-care addressed, no concerns identified at this time. HEAVY EQUIPMENT PLUMBING SUPERVISOR met with the patient at bedside. Sw role explained, contact info and discharge planning checklist provided. Pt lives in a mobile home in [facility]. Pt has 3 steps to enter her home, uses no DME and states she continues to drive. Pt has a history with [facility] for RN, PT after a bout of pneumonia. Pt does not feel that she will need HH at discharge back states that her preference would be for [facility] if her doctors order it. Pt currently has home 02 through [employer] but states that she does not use it regularly. Pt anticipates discharge home with her daughter to transport. EMR reviewed, pt has been ambulating to the bathroom I during admission. A: Pt who is I at baseline. P: Anticipate pt to discharge home with her daughter to transport once medically stable; HEAVY EQUIPMENT PLUMBING SUPERVISOR to continue to follow to assess for d/c needs and r/o need for HH. KEHINDE Figueroa Addendum: 10/13/16 at 1037 by MARILYN MCINTOSH Amended: Links added.
--- NOTE | 2016-10-13 10:36 | DRSVH ---
PROCEDURE: X-RAY CHEST ONE VIEW, PORTABLE ([id number]) INDICATIONS: FU pulmonary Edema TECHNIQUE: One view of the chest was acquired. COMPARISON: [facility], CR, XR CHEST 1VW (PORTABLE), 10/11/2016, 18:56. FINDINGS: Surgical changes and devices: None. Lungs and pleura: Edema has diminished. Small bibasilar pleural effusions are present bibasilar airs pace opacities. Mediastinum: Mediastinal contours appear normal. Heart size is normal. Bones and chest wall: No suspicious bony lesions. Overlying soft tissues appear unremarkable. IMPRESSION: 1. Resolving pulmonary edema and small bibasilar pleural effusions are noted as well as bibasilar [place] airspace opacities consistent with residual patchy pulmonary edema, compressive atelectasis or pn [place]. Dictated by: Tello Woods [facility] Interpreted: Kristin Marin MD on 10/13/2016 at 9:13 Approved by: Kristin Marin MD, PhD on 10/13/2016 at 10:33
--- NOTE | 2016-10-13 13:30 | NUR ---
Evaluation completed. Please go to "Notes" then click on "Assessments and Notes" (bottom left corner of screen). Then select appropriate discipline tab on top of screen.
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
--- NOTE | 2016-10-13 18:32 | NUR ---
[place]/Hypotension/O2 Pt's [place] catheter removed per MD order, Pt denied bladder discomfort despite going a majority of the shift without voiding, Pt voided without issues in the late afternoon/early evening. Pt's BP 92/47 this am prior to medication pass, Pt asymptomatic with BP even when standing up, Pt given all am medications. Pt's BP 83/38 this afternoon, senior product integrity engineer at bedside when VS taken, no new orders at that time, Pt remained asymptomatic throughout remainder of the shift. Pt's SPO2 sats in the upper 90s on 4L via nasal cannula, low 90s on RA while working with PT, Pt left on RA, Pt denied SOB throughout entire shift, subsequent SPO2 sats on RA 90 and 91%.
[2016-10-13] MEDS: Nitroglycerin 50 mg/250 mL D5W Premix IV SCH (22:11)
--- NOTE | 2016-10-14 01:15 | PROG NOTE ---
[address] [address] PROGRESS NOTE PATIENT: MOLLY HOWELL : 1935 MR#: [id number] ADMIT: 10/11/2016 JOB ID: [id number] CARDIOLOGY CONSULTATION FOLLOWUP NOTE-FOLLOWUP INPATIENT PHYSICAL: DATE: , October 13, 2016. CONSULTING PHYSICIAN: Cardiology; Bari De La Cruz MD PROBLEMS: 1. CAD: a. Presenting ACS, STEMI, anterior STEMI. b. Clinical scenario of prior extensive unrecognized anterior MS on September 20. c. Ischemic cardiomyopathy, ejection fraction 30% with anterior wall motion defects consistent with LAD distribution. 2. CAD: Single-vessel CAD of LAD. 3. Congestive heart failure, now compensated. HISTORY AND PROGRESS: Hospital day three: I saw this 81-year-old woman along with her daughter in her room on the PCU unit this morning, now 36 hours after she presented with severe chest pain and anterior STEMI. She has done well overall. Initially, there was concern for heart failure because of overt pulmonary edema on chest x-ray and hypoxia. She was diuresed over a liter and is now stable. For the past 24 hours, she is now walking the room and the hallways without difficulty. She denies further chest discomfort or shortness of breath or nocturnal dyspnea. Her primary complaint is chronic lower back pain that has been exacerbated in the hospital. OBJECTIVE: Examination: Vital signs stable. Note systolic blood pressure about 90 on beta-marcella and ROLANDO inhibitor. No further net diuresis in the last 24 hours. MEDICATIONS REVIEWED INCLUDIN. Metoprolol 12.5 mg p.o. b.i.d. 2. ASA 81 mg daily. 3. Pantoprazole 40 mg t.i.d. 4. Plavix 75 mg daily. PHYSICAL EXAMINATION: On examination, she appears improved and very well. She is energetic, optimistic, and voluble. She is ambulatory energetically in the room without problem. On examination, there is no heart failure. Specifically, lungs are clear. Jugular venous pressure appears slightly elevated at about 8-10 cm. Cardiac examination is unremarkable without a definite S3. Extremities intact without edema, and the catheterization site is fully intact. LABORATORY: Creatinine stable at 0.54. Note, total CK was 101 from her infarct. BNP 9757. IMAGING: The chest x-ray film today is much improved with significant improvement in the pulmonary edema pattern without overt heart failure evident now. ASSESSMENT: I discussed the findings, impressions, management considerations with her and her daughter as well as with the primary hospitalist team, Dr. Laboy, including: Acute coronary syndrome, myocardial infarction, anterior myocardial infarction, and coronary artery disease. I discussed with her the clinical picture and findings of heart disease that is new to her with coronary artery disease and two infarcts and severe left ventricular dysfunction. Her heart failure appears to be stabilized, and clinically, she is doing very well. She was very interested in knowing when she would go home from the hospital and her prognosis. We discussed the need for empiric observation and followup. We discussed the seriousness of her underlying heart disease but reassured her she is doing well now. We discussed post infarct issues at length including the importance of early followup with primary care physician, as well as early followup with cardiology clinic. We discussed medication regimen including dual antiplatelet therapy (DAPT) and medicines for heart failure. We discussed activity prescription including return to activities as tolerated including moderate symptom limited progressive activities and importance of a rehabilitation program. RECOMMENDATIONS: 1. Continue re-ambulation and agree with the plan for discharge in the near future. 2. Despite the importance of ROLANDO inhibitor and beta blockers for her cardiomyopathy, recommend to back off on those drugs as needed given her hypotension, although it is asymptomatic currently. 3. Note severity of her underlying disease, limited revascularization, and potential for limited prognosis.
[2016-10-14] MEDS: Sodium Chloride LOK Flush 10 mL Syringe IVFLUSH SCH ×2 (01:21→09:36)
[2016-10-14 01:43] VITALS: BP 98/61; PULSE 64; RESP 16; O2SAT 96
[2016-10-14 03:39] LABS: BASOPHILS % (AUTO) 0.4 % (0-3); EOSINOPHILS % (AUTO) 1.5 % (0-5); Mean Corpuscular Hemoglobin 30.7 pg (27.0-35.0); Mean Corpuscular Volume 94.4 fL (81-100); NEUTROPHILS % (AUTO) 63.5 % (40-74); Platelet Count 144 bil/L (150-400)
[2016-10-14 04:03] LABS: Magnesium 1.9 mg/dL (1.6-2.6); Phosphorus 1.8 mg/dL (2.5-4.9)
[2016-10-14 04:04] VITALS: BP 97/60; PULSE 65; RESP 16; O2SAT 94
--- NOTE | 2016-10-14 05:53 | NUR ---
Hypotension PM dose of Metoprolol held r/t BP of 83/47, subsequent BP's 97/60 and 98/61 with Tele SB/R 50's to 70's. No c/o CP or SOB. Pt uses O2 intermittently as need and she does this at home as well. Pt c/o of chronic back pain and declines medication, states that movement is the best thing for her.
[2016-10-14 07:58] VITALS: BP 100/60; PULSE 68; RESP 16; O2SAT 93
[2016-10-14 08:00] VITALS: PULSE 71
[2016-10-14] MEDS: Pantoprazole 40 mg ER24 Tablet PO SCH (09:38)
--- NOTE | 2016-10-14 10:23 | PCM.DIMED ---
Rupinder Deandre Zafar DO 10/14/16 1023: Discharge Instructions Date of Service Oct 14, 2016 Dates of Hospitalization Oct 11, 2016 at 14:12 Discharge Diagnosis Discharge Diagnosis STEMI; present on admission; ongoing: You have had a serious heart attack, it will be very important that you take your medications as directed or it is very likely that you will have another heart attack. Take the Aspirin and Plavix every day, we will provide you with a medication that will protect your stomach as well. Hypokalemia; present on admission; Resolved: You potassium was a little high when you came in, this was just from the stress of your heart attack, your primary care doctor will measure this for you when you follow up. Leukocytosis; present on admission;Resolved: You had a very minimally elevated white blood cell count when you came in. Most likely this was due to the stress from your heart attack rather than an infection, we do not think that you will need antibiotics when you go home. Chronic GERD with PUD; present on admission; ongoing: As above we will provide a medication to protect your ulcer with your new medications Nicotine dependence; present on admission; ongoing: It is very important that you quit smoking, if you weren't a smoker then you probably wouldn't have had this heart attack, and quitting now will greatly reduce your chance of having another heart attack in the future. Medication Instructions Additional med instructions We have started several new medications that it is very important for you to take every day. Enteric coated Aspirin 81 mg daily Plavix 75 mg daily Metoprolol 12.5 twice per day Omeprazole 20 mg per day Atorvastatin 40 mg daily Test Results Test Results You underwent a cardiac catheterization that showed that you have a very extensive blockage of one of the main arteries in your heart, this was too narrow to put in a stent. We did a a follow up Ultrasound of your heart which showed that significant portion of your heart is not working at all, and those parts of the heart that do work are not working very well. Diet Discharge Diet: Heart Healthy Activity Discharge Activity: Limited until seen by PCP (You should be very careful moving around, we will send a referral for home health physical therapy to help you get your strength back.) Call your provider Call your provider for: Fever or Chills, Shortness of breath, Bleeding, Chest pain, Vomitting, Excessive diarrhea, Weakness (unilateral) Patient Instructions Patient Instructions Again, it is vitally important that you take your medications every day, I know it is difficult to adjust to this new situation; but I am confident that the same discipline that you used to maintain your health all these years can be applied to taking your medication. It is also very important that you quit smoking, you probably would not have had this heart attack if you did not smoke ; and you can greatly reduce the risk of having another heart attack if you quit now. We have sent a referral to home health physical therapy, they can help work with you in your home to get your strength and balance back. Follow-up plan Please follow up with your primary care provider Dr. Andres Mart in 1 week Please follow up with Dr. Peralta from cardiology in 2 weeks Follow-up Provider: Andres Mart MD Follow-up with PCP in: 1 week Provider: Eran Peralta MD Follow-up in: 2 weeks Zora Munguia DO 10/14/16 1626: Discharge Instructions Attending's Statement The patient was seen and examined together with Dr. Bucio on 10/14/16 and I agree with the history, exam and plan as outlined in the note above. Deandre Bucio DO Oct 14, 2016 10:23 Zora Munguia DO Oct 14, 2016 16:26
[2016-10-14] MEDS ORDERED: PANT40TA3 PO (10:26)
[2016-10-14] MEDS ORDERED: METO25TA6 PO (10:26)
[2016-10-14] MEDS ORDERED: CLOP75TA28 PO (10:26)
[2016-10-14] MEDS ORDERED: ATOR40TA69 PO (10:26)
[2016-10-14] MEDS ORDERED: ASPI-235 PO (10:26)
[2016-10-14 10:59] VITALS: PULSE 83
--- NOTE | 2016-10-14 11:11 | NUR ---
D/c from PT; safe to amb w/nsg w/o AD SBA
--- NOTE | 2016-10-14 11:53 | NUR ---
Social Work: Discharge/Multidisciplinary Rounds D: Pt discussed in multidisciplinary Rounds. pt is medically stable for discharge home with home health services for PT. Case management order placed to coordinate HH PT. WATER SANDER acknowledges order for HH. WATER SANDER met with the patient at bedside to confirm discharge plan and her preference for [facility]. Pt agrees that she would like home PT through [facility]. She sates she has no concerns about her discharge and will await a phone call from [facility] to setup home health. Flavoring Oil Filterer is aware and will provide referral to [facility]. A: pt who is homebound and iwll require home health PT for continued strengthening and mobility improvement P: Anticipate pt to discharge home today via POV and [facility] for PT. KEHINDE Figueroa
[2016-10-14 12:00] VITALS: BP 101/66; PULSE 74; RESP 18; O2SAT 96
--- NOTE | 2016-10-14 13:33 | PCM.DC.MED ---
Discharge Summary Date of Service Oct 14, 2016 Dates of Hospitalization Date of Hospital Admission Oct 11, 2016 at 14:12 Date of Discharge: Oct 14, 2016 Providers: Admitting Physician: Zora Munguia DO Primary Care Physician: Erickson Attending Physician: Zora Munguia DO Diagnosis at Time of Discharge Diagnosis at Time of Discharge STEMI; present on admission; improved Hypokalemia; present on admission; Resolved: Leukocytosis; present on admission;Resolved: Chronic GERD with PUD; present on admission; stable Nicotine dependence; present on admission; Active Consultations Cardiology with Dr. Bari De La Cruz Procedures XRay, CTs & MRIs X-RAY CHEST ONE VIEW, PORTABLE IMPRESSION: 1. Resolving pulmonary edema and small bibasilar pleural effusions are noted as well as bibasilar patchy airspace opacities consistent with residual patchy pulmonary edema, compressive atelectasis or pneumonia. Dictated by: Tello Woods RRA Interpreted: Kristin Marin MD on 10/13/2016 at 9:13 Approved by: Kristin Marin MD, PhD on 10/13/2016 at 10:33 . ECG 12 Lead Twelve-lead showed ST elevations in V1 through the D6, lead 1, and aVL. Reciprocal leads into 3 and aVF showed T-wave depression. Rate of 58 Cardiac Echo Impression Interpretation Summary Normal left ventricle size with ejection fraction 30%. The apical 2/3 of anterior wall, apical 1/2 of septum, apical 1/3 of inferior wall and apical 1/3 of lateral wall are akinetic. The apex is dyskinetic. These wall motion abnormality is consistent with proximal LAD lesion. Grade I diastolic dysfunction. Mild mitral regurgitation. Mild aortic regurgitation. Mild tricuspid regurgitation. The right ventricular systolic pressure is estimated at 39 mmHg assuming a right atrial pressure of 8 mm Hg. Electronically signed by: Jenn Torres on Reading Physician:10/12/2016 11:51 AM . Other Diagnostics Coronary catheterization FINDINGS: 1. LMCA: The left main coronary artery is short and intact without any angiographically significant lesion. 2. LAD: The left anterior descending coronary artery is occluded proximally at the first septal neck band maker. Later, after PTCA, the distal LAD is seen to the apex. It is very small, thready and severely diffusely diseased. 3. LCX: Left circumflex coronary artery is a large vessel that is intact and without angiographically significant coronary lesions. Its distribution consists of one moderate to large size branching OM and a large distal LPL branch. 4. RCA: Dominant. Intact. The right coronary artery has mild atherosclerotic plaquing; its distribution includes a small PDA and RPLV. There are very faint collaterals seen in the direction of the LAD. Bari De La Cruz MD 10/11/16 1909 . Brief History 81-year-old female with long-standing smoking history, as well as peptic ulcer disease who was transferred to our facility from [place] after experiencing chest pain that radiated to her back that began at 8 PM on 10/10/16 . Patient states that she had a recent episode of this on September 20 that lasted 3-4 hours, but could still be felt for many days after. Patient underwent initialy cardiac evaluation at [facility] and was found to have an elevated Troponin so was transfered to this institution for possible catheterization, at our facility the Elevated Trop was verified and the patient was manifesting signs of ST elevation. The patient was taken for emergent cardiac Cath where she was found to have extensive atherosclerotic disease to the LAD not amenable to stenting due to exceptionally small caliber coronary vasculature. The patient was started on optimal medical therapy per direction by cardiology. The patient was having some difficulty with ambulation prior to DC, most likely secondary to her underling orthopedic dysfunction being exacerbated by interruption of her usual exercise routine and bed. Will refer to cardiology and home health PT upon DC. Patient is being discharged home on Aspirin, plavix, metoprolol 12.5mg BID and omeprazole. Hospital Course 81-year-old female with a history of prolonged nicotine abuse and peptic ulcer disease presented with chest pain with radiation to the back, with EKG changes significant for STEMI. Patient underwent coronary catheterization on 10/11/16 which demonstrated severe disease to the LAD not amenable to stenting due to small caliber vessels. Follow up ECHO was obtained with results as above, indicative of severe cardiac dysfunction and widespread akinesis and an EF of 30 %. STEMI; present on admission; ongoing -EKG showed elevations in lead 1, aVL, V1 through V6 -Coronary catheterization with full results as above, extensive disease to the LAD not amenable to stenting -Started metoprolol, EC Aspirin, Plavix, Atorvastatin -Metoprolol had to be withheld at times due to hypotension while on Nitro drip -Heparin drip for 48 hours -Follow up ECHO with results as above(EF 30% with severe regional wall motion abnormalities), indicative of extensive akinesis and hypokinesis Hypokalemia; present on admission; Resolved -K 3.3 upon presentation -Repleted as necessary -Continued to follow CMP Leukocytosis; present on admission; Resolved -WBC 10.2 most likely stress induced, -Procalcitonin essentially negative -Continue to track CBC Chronic GERD with PUD; present on admission; ongoing -omeprazole 40 mg by mouth daily Nicotine dependence; present on admission; ongoing -Nicotine patch 14 -Counseled patient to quit smoking . Exam Vital Signs (Last) Date Time Temp Pulse Resp B/P Pulse Ox O2 Delivery O2 Flow Rate FiO2 10/14/16 12:00 36.9 74 18 101/66 96 Nasal Cannula 3.00 Exam Gen: A/O x3 pleasant exceptionally talkative elderly woman in mild acute distress Neck: Supple, non tender, no thyromegaly, no JVD HEENT: PERRLA, EOMI, no scleral icterus, no conjunctival pallor CV: RRR, mild 2/6 systolic ejection murmur, no rubs or gallops Resp: Lungs CTA BL, no wheezing rales or rhonchi Abd: Soft, non tender, no organomegaly, no rebound or guarding Extr: Thin, no cyanosis clubbing or edema Neuro: CN 2-12 grossly intact, no focal neurologic deficit Psych: Pleasant and appropriate, very talkative with tangential stories . Test 10/11/16 15:00 10/11/16 23:42 10/12/16 00:12 10/12/16 03:50 Hemoglobin A1c 5.7% (4.8-5.6) Thyroid Stimulating Hormone (TSH) 0.613uIU/mL (0.450-4.500) Hold [place] Top Tube Received (Received) Hold Urine Received (Received) Urine Color Yellow (YELLOW) Urine Appearance Clear (CLEAR,HAZY) Urine pH 5.5 (5.0-8.0) Urine Specific [place] 1.049 (1.003-1.035) Urine Protein Negativemg/dL (NEG,TRACE) Urine Glucose (UA) Negativemg/dL (NEGATIVE) Urine Ketones Negativemg/dL (NEGATIVE) Urine Occult Blood Small (NEGATIVE) Urine Nitrite Negative (NEGATIVE) Urine Bilirubin Negative (NEGATIVE) Urine Urobilinogen Normalmg/dL (NORMAL) Urine Leukocyte Esterase Trace (NEGATIVE) Urine RBC 0-2/hpf (0-2) Urine WBC 11-50/hpf (0-5) Urine Epithelial Cells Occasional/hpf (NONE-MOD) Urine Crystals None seen (NONE SEEN) Urine Bacteria None/hpf (NONE-FEW) Urine Hyaline Casts None/lpf (NONE) Urine Granular Casts None seen (NONE SEEN) Urine Waxy Casts None seen (NONE SEEN) Urine Red Blood Cell Casts None seen (NONE SEEN) Urine White Blood Cell Casts None seen (NONE SEEN) Urine Mucus None seen (None Seen) Urine Trichomonas None seen (NONE SEEN) Urine Yeast None (NONE SEEN) Urinalysis Comment None Total Creatine Kinase 2822U/L (21-215) Creatine Kinase MB 196.5ng/mL (0.0-5.3) Creatine Kinase MB % 7.0% (0.0-5.0) Troponin T 9.94ug/L (0.0-0.011) Pro-B-Type Natriuretic Peptide 9757pg/mL (0-738) Triglycerides Level 70mg/dL (0-149) Cholesterol Level 155mg/dL (100-199) LDL Cholesterol, Calculated 85.000mg/dL (0-99) VLDL Cholesterol 14.000mg/dL HDL Cholesterol 56mg/dL (>39) Cholesterol/HDL Ratio 2.77 (0.0-4.4) Test 10/13/16 03:23 10/14/16 03:00 Prothrombin Time 11.8sec (8.1-12.5) Prothromb Time International Ratio 1.10ratio Activated Partial Thromboplast Time 74.1sec (22.8-33.0) Procalcitonin 0.15ng/mL (0.00-0.08) White Blood Count 6.8th/mm3 (3.8-10.1) Red Blood Count 3.55mil/mm3 (3.90-5.20) Hemoglobin 10.9g/dL (12.0-15.6) Hematocrit 33.5% (35.0-46.0) Mean Corpuscular Volume 94.4fL (81-100) Mean Corpuscular Hemoglobin 30.7pg (27.0-35.0) Mean Corpuscular Hemoglobin Concent 32.5% (32.0-37.0) Red Cell Distribution Width 12.8% (12.3-15.4) Platelet Count 144bil/L (150-400) Neutrophils (%) (Auto) 63.5% (40-74) Lymphocytes (%) (Auto) 23.2% (14-46) Monocytes (%) (Auto) 11.0% (4-12) Eosinophils (%) (Auto) 1.5% (0-5) Basophils (%) (Auto) 0.4% (0-3) Sodium Level 139mEq/L (134-144) Potassium Level 4.1mEq/L (3.5-5.2) Chloride Level 102mEq/L (97-108) Carbon Dioxide Level 24mmol/L (18-29) Blood Urea Nitrogen 29mg/dL (8-27) Creatinine 0.59mg/dL (0.57-1.00) Estimat Glomerular Filtration Rate 140mL/min (>59) Glucose Level 96mg/dL (60-99) Calcium Level 8.7mg/dL (8.5-10.1) Phosphorus Level 1.8mg/dL (2.5-4.9) Magnesium Level 1.9mg/dL (1.6-2.6) Total Bilirubin 1.0mg/dL (0.0-1.2) Aspartate Amino Transf (AST/SGOT) 75U/L (0-50) Alanine Aminotransferase (ALT/SGPT) 39U/L (0-32) Alkaline Phosphatase 68U/L (25-165) Total Protein 5.4g/dL (6.4-8.4) Albumin 3.2g/dL (3.4-5.0) Discharge Medications Discharge Medications ([OTC estrogen]) Unknown Dose PO DAILY (Reported) ([beta carotene]) Unknown Dose PO DAILY (Reported) Ascorbate Calcium (Vitamin C) 500 Mg Tablet 500 MG PO DAILY (Reported) Aspirin (Lite Coat Aspirin) 325 Mg Tablet 81 MG PO DAILY Prescribed by: BOYD BUCIO DO Atorvastatin Calcium (Atorvastatin Calcium) 40 Mg Tablet 40 MG PO HS Prescribed by: BOYD BUCIO DO Biotin (Biotin) 1 Mg Capsule Unknown Dose PO DAILY (Reported) Calc/D3/Mag/Zn/Shoemaker Apprentice/Juan/Muir (Calcium 600 mg Plus Vit D Tab) 1 Each Tablet 1 EACH PO DAILY (Reported) Clopidogrel (Clopidogrel) 75 Mg Tablet 75 MG PO DAILY Prescribed by: BOYD BUCIO DO Cyanocobalamin/Folic Acid (Vitamin C05-Niahq Acid Tablet) 1 Each Tablet 1 EACH PO DAILY (Reported) Metoprolol Tartrate (Metoprolol Tartrate) 25 Mg Tablet 12.5 MG PO BID Prescribed by: BOYD BUCIO DO Pantoprazole DR (Pantoprazole DR) 40 Mg Tablet.dr 40 MG PO DAILY Prescribed by: BOYD BUCIO DO Vitamin E Mixed (Vitamin E) 400 Unit Capsule 400 UNIT PO DAILY (Reported) Additional med instructions We have started several new medications that it is very important for you to take every day. Enteric coated Aspirin 81 mg daily Plavix 75 mg daily Metoprolol 12.5 twice per day Omeprazole 20 mg per day Atorvastatin 40 mg daily Followup Plan Disposition: Home with home health PT Follow-up plan Please follow up with your primary provider Dr. Andres Mart in 1 week Please follow up with Dr. Peralta from cardiology in 2 weeks. Discharge Diet: Heart Healthy Discharge Activity: Limited until seen by PCP (You should be very careful moving around, we will send a referral for home health physical therapy to help you get your strength back.) Patient Instructions Again, it is vitally important that you take your medications every day, I know it is difficult to adjust to this new situation; but I am confident that the same discipline that you used to maintain your health all these years can be applied to taking your medication. It is also very important that you quit smoking, you probably would not have had this heart attack if you did not smoke ; and you can greatly reduce the risk of having another heart attack if you quit now. We have sent a referral to home health physical therapy, they can help work with you in your home to get your strength and balance back. Follow-up Provider: Andres Mart MD Follow-up with PCP in: 1 week (Dr. Andres Mart) Provider: Eran Peralta MD Follow-up in: 2 weeks Time spent Time spent planning and coordinating discharge > 35 minutes Attending Statement The patient was seen and examined together with Dr. Bucio on 10/14/16 and I have added additional information to the note above. copies to: Andres Mart MD Barnett, David E DO Oct 14, 2016 13:32 Zora Munguia DO Oct 14, 2016 16:34
--- NOTE | 2016-10-14 14:38 | NUR ---
NEW Home Health Referral: Faxed referral to [facility] [phone] per ANALYT[employer] INTERN and orders patient needs home health PT
--- NOTE | 2016-10-14 15:23 | NUR ---
Discharge pt ordered for discharge home with home health services. pt aware and agreeable. discharge instructions and medications reviewed with patient and daughter. reviewed home care for groin cath site. patient denies questions and concerns. pt escorted to main lobby via wheelchair and all belongings at about 1450.
== END 2016-10-14 14:50 | disposition home health service (06) | DRG 251 ==
LOC: PCC 14:12 → CCU 19:23 → PCC 10-12 13:48
PROVIDERS: ADMIT Neuromusculoskeletal Medicine & OMM; ATTEND Neuromusculoskeletal Medicine & OMM
PROC: 02703ZZ Dilation of Coronary Artery, One Artery, Percutaneous Approach (ICD-10-PCS; principal; 2016-10-11)
PROC: 4A023N7 Measurement of Cardiac Sampling and Pressure, Left Heart, Percutaneous Approach (ICD-10-PCS; 2016-10-11)
PROC: B2111ZZ Fluoroscopy of Multiple Coronary Arteries using Low Osmolar Contrast (ICD-10-PCS; 2016-10-11)
DX: I21.02 ST elevation (STEMI) myocardial infarction involving left anterior descending coronary artery (principal); I22.0 Subsequent ST elevation (STEMI) myocardial infarction of anterior wall; E87.6 Hypokalemia; K21.9 Gastro-esophageal reflux disease without esophagitis; F17.210 Nicotine dependence, cigarettes, uncomplicated; I25.10 Atherosclerotic heart disease of native coronary artery without angina pectoris; K27.7 Chronic peptic ulcer, site unspecified, without hemorrhage or perforation; I25.5 Ischemic cardiomyopathy